=== PATIENT | female | born 1985 | race American Indian/Alaskan Native ===

== ENCOUNTER 2018-09-08 06:39 | Inpatient (IN) | payer BC, MEDICAID ==
[2018-09-02 08:23] VITALS: BMI 29.4
[2018-09-08] MEDS ORDERED: Propofol 10 mg/ml Inj (20 ML) ONE (08:14)
[2018-09-08] MEDS ORDERED: Midazolam 2 MG/2 ML VIAL ONE (08:14)
[2018-09-08] MEDS ORDERED: cefOXitin IV 2 gm in Dextrose 2 GM/50 ML BAG IVPB ONE (08:30)
[2018-09-08] MEDS ORDERED: Bacitracin Ointment 30 GM TUBE ONE (08:30)
[2018-09-08] MEDS ORDERED: Vasopressin 20 Units/ml Inj ONE (08:30)
[2018-09-08] MEDS ORDERED: Succinylcholine Chloride 20 mg/ml Syr (5 ml) IV ONE (08:31)
[2018-09-08] MEDS ORDERED: Bupivacaine 0.25% 20 ML INJ IJ ONE (09:26)
[2018-09-08] MEDS ORDERED: Rocuronium 10 mg/ml (5 ml) ONE (09:53)
--- NOTE | 2018-09-08 09:59 | PCM.ANESB5 ---
Transverse Abdominis Block - Transverse Abdominis Plane Date of Procedure: 09/08/18 Anesthesiologist: serafin Pre-Procedure Diagnosis: myoma Post-Procedure Diagnosis: myoma Procedure Performed: Transverse Abdominis Plane Nerve Block Left, Transverse Abdominis Plane Nerve Block Right - Procedure Transverse Abdominis Plane Nerve Block: The procedure was explained to the patient that it is for post-operative pain management and would be performed after surgery. Consent was obtained prior to surgery after a thorough discussion with the patient regarding the benefits and possible complications of transverse abdominis plane block. After the surgery had concluded and before the patient emerged from general anesthesia, time-out was held with the circulating nurse to re-confirm the appropriate block. With the patient in supine position, the ultrasound probe was placed transverse to the abdominal wall at the mid-axillary line above the iliac crest of the appropriate side. The skin, subcutaneous tissue, fat, external oblique muscle, internal oblique muscle, and the transverse abdominis muscle were identified. The general area of the block site was then prepped with Betadine three times. At this point, a # 21-gauge Stimuplex 4-inch needle was inserted posterior to and in plane with the ultrasound probe and directed anteriorly. Needle was advanced under direct ultrasound visualization until it reached the plane between the internal oblique and transverse abdominis muscles. After appropriate placement, 2mL of local anesthetic solution was injected. When the transverse abdominis plane was observed expanding in an ellipsoid way, the rest of the solution was slowly injected. A total of 20 mL of __.25___ % bupvicaine was used for this bloc bilaterally. The needle was then removed and sterile dressing was applied. Similarly, the same procedure was performed on the other side using the same medications. The patient had stable vital signs throughout and had no untoward complications after emergence from general anesthesia in the recovery room.
[2018-09-08] MEDS ORDERED: Lactated Ringer's 1,000 ML IV ONE (10:00)
[2018-09-08] MEDS: HYDROmorphone 0.5 mg/0.5 ml ISec IVP PRN ×5 (10:19→12:46)
[2018-09-08] MEDS ORDERED: DiphenhydrAMINE 50 mg/ml Inj IVP PRN (10:27)
[2018-09-08] MEDS ORDERED: Naloxone 0.4 mg/ml Inj (Adult) IVP PRN (11:02)
[2018-09-08] MEDS: cefOXitin IV 1 gm in Dextrose 1 GM/50 ML BAG IVPB SCH ×2 (15:21→17:51)
[2018-09-08] MEDS ORDERED: cefOXitin IV 1 gm in Dextrose 1 GM/50 ML BAG IVPB SCH (23:00)
[2018-09-09 02:07] VITALS: RESP 20
[2018-09-09] MEDS ORDERED: Enoxaparin 40 mg Syringe SC SCH (06:00)
--- NOTE | 2018-09-09 06:27 | OP ---
PROCEDURE DATE: 09/08/2018 PREOPERATIVE DIAGNOSES: Fibroid uterus, menorrhagia. POSTOPERATIVE DIAGNOSES: Fibroid uterus, menorrhagia. PROCEDURES: Exploratory laparotomy and myomectomy. FINDINGS: An 18-week size fibroid uterus with a total of five intramural myomas, which were removed, two posterior and three anterior without entering the endometrial cavity. SURGEON: Darryl Lorenzo MD ANESTHESIA: General. ESTIMATED BLOOD LOSS: 150 mL. COMPLICATIONS: Nil. DESCRIPTION OF PROCEDURE: After the risks, benefits and alternatives of the planned procedures including but not limited to infection, hemorrhage, deep vein thrombosis, atelectasis, pneumonia, pulmonary embolism, damage to the bladder, damage to the ureter, renal insufficiency, renal failure, wound infection, wound dehiscence, incisional hernia, keloid formation, damage to the large and small intestines, damage to the inferior vena cava and aorta requiring extensive repair, anesthesia complications, electrolyte imbalance, possibility of , fluid overload, cerebral edema, air embolism and other complications that were discussed, but are not listed above had been explained to the patient. All her questions were answered. Informed consent was obtained. The patient was taken to the operating room in a stable condition. Under a suitable level of general anesthesia, she was prepped and draped in a sterile fashion after having been placed in a supine position. Abdomen was entered via Pfannenstiel type incision, carried through the subcutaneous tissues through the fascia. Fascia was opened transversely and dissected off the rectus abdominis musculature. Rectus abdominis musculature was then in the midline to remove the parietal peritoneum, which was entered sharply and incised superiorly and inferiorly. An O'Nando-O'Mosley retractor was inserted into the abdomen and bowel was packed away from the pelvic cavity. The uterus was then elevated from the pelvic cavity. The posterior and anterior cope of the uterus were infiltrated using Pitressin. A longitudinal incision was made over the posterior wall of the uterus, and two intramural myomas were enucleated. Excision site was then closed in four layers with the first three layers being interrupted layers using 0 Vicryl suture and the superficial myometrium and serosa being closed using 0 Vicryl suture in a baseball stitch fashion. Hemostasis was good. An anterior longitudinal incision was made through which a total of three intramural myomas were enucleated again without entry into the endometrial cavity, but coming all the way just outside the submucosal layer of the endometrium. Again, the incision site was closed in four layers with the first three layers being interrupted layers using 0 Vicryl suture and superficial myometrium and serosa being closed using 0 Vicryl suture in a baseball stitch fashion. Hemostasis was good. Tubes and ovaries were normal. Peritoneal cavity was then irrigated using copious amounts of saline. The saline was evacuated. EverSeal was applied to the excision site. The abdomen was then closed in layers with 0 chromic to the parietal peritoneum. Rectal muscles were reapproximated using interrupted sutures of 0 chromic. Fascia was reapproximated using two separate running sutures of 0 chromic to meet in the midline. Subcutaneous tissues were reapproximated using interrupted sutures with 0 plain. The initial skin incision was reapproximated using 4-0 Vicryl in a subcuticular fashion. Estimated blood loss of the procedure was 150 mL. Pad, needle and instrument counts were correct x2. There were no complications. Darryl Lorenzo MD
[2018-09-09 06:43] LABS: HEMOGLOBIN 9.3 g/dL (11.0-16.0)
[2018-09-09] MEDS: Enoxaparin 40 mg Syringe SC SCH (09:10)
[2018-09-09] MEDS: Oxycodone/Acetaminophen 5/325 mg Tab PO PRN ×3 (10:19→20:00)
[2018-09-09 11:48] LABS: BASO % 0.4 % (0.0-2.0); EOS # 0.2 K/uL (0.0-0.7); EOS % 2.1 % (0.0-4.0); HEMOGLOBIN 9.7 g/dL (11.0-16.0); LYMPH # 1.2 K/uL (1.0-4.3); LYMPH % 13.9 % (20.0-40.0); MEAN CELL VOLUME 75.7 fL (81.0-99.0); MEAN CORPUSCULAR HEMOGLOBIN 24.9 pg (27.0-31.0); MEAN CORPUSCULAR HGB CONC 32.8 g/dL (33.0-37.0); MEAN PLATELET VOLUME 9.1 fL (7.2-11.7); MONO # 0.6 K/uL (0.0-0.8); MONO % 6.2 % (0.0-10.0); NEUT % 77.4 % (50.0-75.0); RBC 3.9 Mil/uL (3.80-5.20); RED CELL DISTRIBUTION WIDTH 15.7 % (11.5-14.5)
[2018-09-10] MEDS: Oxycodone/Acetaminophen 5/325 mg Tab PO PRN ×3 (00:19→08:14)
[2018-09-10 04:43] VITALS: O2SAT 100
[2018-09-10 08:33] VITALS: BP 133/86; PULSE 94; TEMP 98.9
[2018-09-10] MEDS: Enoxaparin 40 mg Syringe SC SCH (11:00)
--- NOTE | 2018-09-10 18:32 | PN ---
DATE: 09/10/2018 SUBJECTIVE: The patient has no complaints. OBJECTIVE: VITAL SIGNS: Stable. She is afebrile. ABDOMEN: Soft. Incision is clean and intact. CHEST: Clear. CARDIAC: Reveals normal heart sounds without any murmurs. LUNGS: Clear. BREASTS: Reveal no masses. EXTREMITIES: Nontender with negative Homans sign. ASSESSMENT: The patient is status post myomectomy day #2. PLAN: Discharge the patient on Tylenol No. 3 two tablets every 4 hours p.r.n. for a total of 40 tablets, Cleocin 300 mg four times daily x7 days. To be followed up in the office in one week. Darryl Lorenzo MD
--- NOTE | 2018-09-11 00:35 | DS ---
The patient is a 33-year-old who was admitted with a history of fibroid uterus and menorrhagia. She underwent an exploratory laparotomy and myomectomy on 09/08/2018. Postoperatively, she remained afebrile. Postoperative hematocrit was 29. She is passing flatus. She is being discharged today on clindamycin 300 mg four times a day x7 days and Tylenol No.3 one tablet every 4 hourly p.r.n. for a total of 40 tablets. To be followed in the office in one week. Darryl Lorenzo MD
== END 2018-09-10 13:18 | disposition home or self-care (01) | DRG 743 ==
LOC: C.9S 06:39 → C.6T 15:57
PROVIDERS: ADMIT Obstetrics & Gynecology Reproductive Endocrinology; ATTEND Obstetrics & Gynecology Reproductive Endocrinology
PROC: 0UB90ZZ Excision of Uterus, Open Approach (ICD-10-PCS; principal; 2018-09-08 08:30)
DX: D25.1 Intramural leiomyoma of uterus (principal); N92.0 Excessive and frequent menstruation with regular cycle